=== PATIENT | male | born 1995 | race Caucasian/White ===

== ENCOUNTER 2022-04-22 12:26 | Emergency (ER) | payer SELFPAY ==
[2022-04-22] MEDS ORDERED: Ondansetron ODT 4 MG TAB ONE (12:52)
== END 2022-04-22 14:16 | disposition home or self-care (01) ==
LOC: NAV ERS 12:26 → EDBD 12:26 → NAV ERS 14:16
DX: R11.2 Nausea with vomiting, unspecified (principal)
CPT/HCPCS: 87804; 99284; Q0162

== ENCOUNTER 2022-12-03 10:37 | Emergency (ER) | payer SELFPAY ==
[2022-12-03] MEDS ORDERED: Ondansetron PF 4 MG/2 ML Vial ONE (11:20)
[2022-12-03] MEDS ORDERED: Sodium Chloride 0.9% 1,000 ML ONE (11:20)
[2022-12-03 11:56] LABS: #Basophils 0.1 thou/uL (0.0-0.2); #Eosinphils 0.1 thou/uL (0.0-0.7); #Lymphocytes 1.5 thou/uL (1.20-3.40); #Monocytes 0.5 thou/uL (0.11-0.59); #Neutrophils 4.4 thou/uL (1.40-6.50); %Eosinophils 0.8 % (0.0-10.0); %Lymphocytes 22.9 % (21.0-51.0); %Monocytes 7.6 % (0.0-10.0); %Neutrophils 67.8 % (42.0-75.0); Hematocrit 48.7 % (42.0-52.0); Hemoglobin 16.4 g/dL (14.0-18.0); Mean Corpuscular HGB CONC 33.6 g/dL (32.0-36.0); Mean Corpuscular Hemoglobin 31.6 pg (27.0-31.0); Mean Corpuscular Volume 93.9 fl (78.0-98.0); Mean Platelet Volume 7.9 fL (7.4-10.4); Platelet Count 208 10x3/uL (130-400); RBC Distribution Width 11.6 % (11.5-14.5); Red Blood Cell (RBC) Count 5.19 mill/uL (4.70-6.10); White Blood Cell (WBC) Count 6.5 10x3/uL (4.8-10.8)
[2022-12-03] MEDS ORDERED: Pantoprazole 40 MG VIAL ONE (12:03)
[2022-12-03 12:10] LABS: ALT (SGPT) 21 U/L (8-55); AST (SGOT) 21 U/L (5-34); Albumin 4.7 g/dL (3.5-5.0); Alkaline Phosphatase 67 U/L (40-110); Anion Gap 17 mmol/L (10-20); BUN (Urea Nitrogen) 18 mg/dL (8.9-20.6); Bilirubin, Total 0.3 mg/dL (0.2-1.2); Calc. Creatinine Clearance 0 mL/min (70-130); Calcium 9.4 mg/dL (7.8-10.44); Carbon Dioxide 24 mmol/L (22-29); Chloride 103 mmol/L (98-107); Estimated GFR 97; Glucose 93 mg/dL (70-105); Lipase 25 U/L (8-78); Potassium 4.6 mmol/L (3.5-5.1); Protein, Total 7.7 g/dL (6.0-8.3); Sodium 139 mmol/L (136-145)
[2022-12-03 12:14] LABS: Bilirubin Negative (Negative); Blood, Urine Negative (Negative); Clarity Clear (Clear); Glucose, Urine (Dipstick) Negative (Negative); Ketone, Urine Negative (Negative); Leukocyte Negative (Negative); Nitrite Negative (Negative); Protein, Urine (Dipstick) Negative (Neg-Trace); Urobilinogen 0.2 mg/dL (Less than 2)
[2022-12-03 12:29] LABS: CAUTI Indications for Culture Pelvic or flank pain; RBC/HPF None Seen HPF (0-3); Squamous Epithelial 0-3 HPF (0-3); WBC/HPF None Seen HPF (0-3)
[2022-12-03 12:30] LABS: Urine Culture Reflex No No
== END 2022-12-03 12:30 | disposition home or self-care (01) ==
LOC: NAV ERS 10:37
DX: K52.9 Noninfective gastroenteritis and colitis, unspecified (principal)
CPT/HCPCS: 80053; 81001; 83690; 85025; 96361; 96374; 96375; C9113; J2405; J7050

== ENCOUNTER 2023-07-30 16:43 | Emergency (ER) | payer SELFPAY ==
[~2023-07-30 16:43] MED LIST: Iopamidol 370 76% 100 ML VIAL ONE
[2023-07-30] MEDS ORDERED: Ondansetron PF 4 MG/2 ML Vial ONE (16:58)
[2023-07-30] MEDS ORDERED: Sodium Chloride 0.9% 1,000 ML ONE ×2 (16:58→19:31)
[2023-07-30 17:21] LABS: #Lymphocytes 1.7 thou/uL (1.20-3.40); #Monocytes 0.4 thou/uL (0.11-0.59); #Neutrophils 3.6 thou/uL (1.40-6.50); %Basophils 0.9 % (0.0-1.0); %Eosinophils 0.5 % (0.0-10.0); %Lymphocytes 29.6 % (21.0-51.0); %Monocytes 6.4 % (0.0-10.0); %Neutrophils 62.6 % (42.0-75.0); Hematocrit 46.2 % (42.0-52.0); Hemoglobin 14.9 g/dL (14.0-18.0); Mean Corpuscular HGB CONC 32.2 g/dL (32.0-36.0); Mean Corpuscular Volume 90.2 fl (78.0-98.0); Mean Platelet Volume 7.1 fL (7.4-10.4); Platelet Count 212 10x3/uL (130-400); RBC Distribution Width 11.4 % (11.5-14.5); Red Blood Cell (RBC) Count 5.12 mill/uL (4.70-6.10); White Blood Cell (WBC) Count 5.7 10x3/uL (4.8-10.8)
[2023-07-30 17:59] LABS: ALT (SGPT) 22 U/L (8-55); AST (SGOT) 19 U/L (5-34); Albumin 4.4 g/dL (3.5-5.0); Alkaline Phosphatase 66 U/L (40-110); Anion Gap 16 mmol/L (10-20); BUN (Urea Nitrogen) 18 mg/dL (8.9-20.6); Bilirubin, Total 0.9 mg/dL (0.2-1.2); Calc. Creatinine Clearance 0 mL/min (70-130); Calcium 9.3 mg/dL (7.8-10.44); Carbon Dioxide 24 mmol/L (22-29); Chloride 106 mmol/L (98-107); Estimated GFR 116; Globulin 2.4 g/dL (2.4-3.5); Glucose 87 mg/dL (70-105); Lipase 12 U/L (8-78); Potassium 3.9 mmol/L (3.5-5.1); Protein, Total 6.8 g/dL (6.0-8.3); Sodium 142 mmol/L (136-145); Troponin I Less than 0.010 ng/mL (< 0.028)
[2023-07-30 19:53] LABS: Bilirubin Small (Negative); Blood, Urine Negative (Negative); Glucose, Urine (Dipstick) Negative (Negative); Ketone, Urine 40 mg/dL (Negative); Leukocyte Negative (Negative); Nitrite Negative (Negative); Protein, Urine (Dipstick) Negative (Neg-Trace); Specific Gravity, Urine 1.015 (1.005-1.030); Urobilinogen 0.2 mg/dL (Less than 2)
[2023-07-30 19:56] LABS: Clarity Hazy (Clear); Urine Culture Reflex No No
[2023-07-30 19:59] LABS: CAUTI Indications for Culture Pelvic or flank pain; Squamous Epithelial 0-3 HPF (0-3); WBC/HPF None Seen HPF (0-3)
[2023-07-30 20:03] LABS: Amphetamine Not Detected (NotDetected); Barbiturates Screen Not Detected (NotDetected); Benzodiazepine Screen Detected (NotDetected); Cocaine Metabolite Screen Not Detected (NotDetected); Methadone Not Detected (NotDetected); Methamphetamine Not Detected (NotDetected); Opiate Screen Not Detected (NotDetected); Oxycodone Screen Not Detected (NotDetected); Phencyclidine (PCP) Not Detected (NotDetected); THC/Cannabinoid Screen Detected (NotDetected); Tricyclic Screen Not Detected (NotDetected)
== END 2023-07-30 21:22 | disposition home or self-care (01) ==
LOC: NAV ERS 16:43
DX: R11.2 Nausea with vomiting, unspecified (principal); E86.0 Dehydration; N20.0 Calculus of kidney; Z87.891 Personal history of nicotine dependence
CPT/HCPCS: 71046; 74177; 80053; 80306; 81001; 83690; 84484; 85025; 93005; 96361; 96374; J2405; J7050; Q9967

== ENCOUNTER 2023-10-11 14:09 | Emergency (ER) | payer SELFPAY ==
[2023-10-11] MEDS ORDERED: Amoxicillin/Potassium Clav 875 MG TAB ONE (14:54)
== END 2023-10-11 15:15 | disposition home or self-care (01) ==
LOC: NAV ERS 14:09
DX: K04.7 Periapical abscess without sinus (principal); Z87.891 Personal history of nicotine dependence
CPT/HCPCS: 40800

== ENCOUNTER 2023-10-16 06:10 | Emergency (ER) | payer SELFPAY | END 2023-10-16 06:50 | disposition home or self-care (01) | LOC: NAV ERS 06:10 | DX: K52.9 Noninfective gastroenteritis and colitis, unspecified (principal); I10 Essential (primary) hypertension; Z87.891 Personal history of nicotine dependence | CPT/HCPCS: 99283 ==

== ENCOUNTER 2025-01-24 12:18 | Emergency (ER) | payer SELFPAY ==
[2025-01-24 13:18] LABS: ALT (SGPT) 18 U/L (Less than 45); AST (SGOT) 24 U/L (11-34); Albumin 4.4 g/dL (3.1-4.5); Alkaline Phosphatase 57 U/L (40-110); Anion Gap 20 mmol/L (10-20); BUN (Urea Nitrogen) 16 mg/dL (8.9-20.6); Bilirubin, Total 0.7 mg/dL (0.3-1.2); Calc. Creatinine Clearance 0 mL/min (70-130); Calcium 9.2 mg/dL (7.8-10.44); Carbon Dioxide 18 mmol/L (22-29); Chloride 106 mmol/L (98-107); Globulin 3.0 g/dL (2.4-3.5); Glucose 141 mg/dL (70-105); Lipase 15 U/L (8-78); Potassium 3.6 mmol/L (3.5-5.1); Sodium 140 mmol/L (136-145)
[2025-01-24 13:23] LABS: Hematocrit 42.1 % (42.0-52.0); Hemoglobin 15.1 g/dL (14.0-18.0); MDiff Complete? YES; Mean Corpuscular Hemoglobin 30.2 pg (27.0-31.0); Mean Corpuscular Volume 84.2 fl (78.0-98.0); Platelet Count 205 10x3/uL (130-400); Red Blood Cell (RBC) Count 5.01 mill/uL (4.70-6.10); White Blood Cell (WBC) Count 11.9 10x3/uL (4.8-10.8)
[2025-01-24] MEDS ORDERED: Ondansetron PF 4 MG/2 ML Vial ONE (13:31)
== END 2025-01-24 14:39 | disposition home or self-care (01) ==
LOC: NAV ERS 12:18
DX: R11.10 Vomiting, unspecified (principal); B34.9 Viral infection, unspecified; Z20.828 Contact with and (suspected) exposure to other viral communicable diseases
CPT/HCPCS: 80053; 83690; 85025; 96361; 96365; 96375; J2405; J2550; J7030